=== PATIENT | female | born 1950 | race Caucasian/White ===

== ENCOUNTER → 2022-08-17 09:30 | Outpatient (CLI) | payer MEDICARE, SELFPAY ==
--- NOTE | 2022-08-17 09:37 | XR_ITS ---
FINAL REPORT CLINICAL HISTORY: hip pain. no pain FINDINGS: LEFT HIP 2 views of the left hip an AP view of the pelvis were obtained. There is no acute fracture or dislocation. There are moderate to severe degenerative changes of the left hip with mild degenerative changes of the right hip. Degenerative changes are also seen in the lower lumbar spine. There are mild vascular calcifications. There is no acute soft tissue abnormality. IMPRESSION: No acute bony abnormality. Moderate to severe degenerative changes of the left hip. Reviewed, Interpreted and Dictated by Abad Chairez III, MD Transcribed by Jennifer Milligan Authenticated and [facility]
[2022-08-17 12:41] LABS: Alanine Aminotransferase 20 U/L (12-78); Albumin/Globulin Ratio 1.5 (1.1-1.8); Alkaline Phosphatase 79 U/L (38-126); Anion Gap 13.7 mEq/L (5-15); Aspartate Amino Transferase 33 U/L (14-36); Bilirubin,Total 0.6 mg/dl (0.2-1.3); Blood Urea Nitrogen 19 mg/dl (7-17); Calcium 9.6 mg/dl (8.4-10.2); Carbon Dioxide 29 mmol/L (22.0-30.0); Chloride 102 mmol/L (98-107); Chol/HDL Ratio 4.6 (1-3.5); Cholesterol 246 mg/dl (140-200); Estimated Glomerular Filt Rate 98 ml/min (>60); GFR (African American) 119 ML/MIN (>60); Globulin 2.7 g/dL (1.3-3.2); Glucose 83 mg/dl (74-100); HDL Cholesterol 54 mg/dl (40-60); Potassium 4.7 mmoL/L (3.5-5.1); Sodium 140 mmol/L (136-145); Total Protein,Serum 6.7 g/dl (6.3-8.2); Triglycerides 133 mg/dl (30-150); VLDL Cholesterol 27 mg/dL (0-40)
[2022-08-17 12:49] LABS: Basophils % 0.6 % (0.1-2.0); Eosinophils # 0.2 K/mm3 (0.0-0.4); Eosinophils % 2.8 % (0.1-12.0); Hematocrit 44.3 % (37.0-47.0); Hemoglobin 14.6 g/dL (12.2-16.2); Lymphocytes # 1.6 K/mm3 (0.7-4.5); Lymphocytes % 30.7 % (10-50); Mean Corpuscular HGB Conc 32.9 g/dL (31.8-35.4); Mean Corpuscular Hemoglobin 29.1 pg (27.0-31.2); Mean Corpuscular Volume 88.6 fl (81-99); Mean Platelet Volume 9.4 fl (7.4-10.4); Monocytes # 0.3 K/mm3 (0.1-1.0); Monocytes % 6.5 % (1.7-9.3); Neutrophils # 3.1 K/mm3 (1.8-7.8); Neutrophils % 59.4 % (37.0-80.0); Platelet Count 330 K/mm3 (142-424); Red Cell Distribution Width 13.2 % (11.5-17.5); White Blood Count 5.3 K/mm3 (4.8-10.8)
[2022-08-17 12:52] LABS: Direct LDL Cholesterol 164.63 mg/dL (100-129)
[2022-08-17 12:57] LABS: Free T4 (Free Thyroxine) 1.09 ng/dl (0.78-2.19)
[2022-08-17 12:58] LABS: 25-OH Vitamin D, Total 34.9 ng/mL (30-100)
[2022-08-17 13:12] LABS: Thyroid Stimulating Hormone 3.45 uIU/mL (0.465-4.68)
== END ==
LOC: RAD 09:31 → LAB 15:16
PROVIDERS: PCP Emergency Medicine; Visit Provider Emergency Medicine
DX: E78.5 Hyperlipidemia, unspecified; R53.83 Other fatigue; E55.9 Vitamin D deficiency, unspecified; M25.552 Pain in left hip
CPT/HCPCS: 73502; 80053; 80061; 82306; 84439; 84443; 85025

== ENCOUNTER 2022-12-18 08:44 | Emergency (ER) | payer MEDICARE, SELFPAY ==
[2022-12-18 08:55] VITALS: BP 147/83; PULSE 67; RESP 22; TEMP 36.3; O2SAT 97; BMI 24.0
--- NOTE | 2022-12-18 09:03 | EXP.UTC ---
Discharge Plan Disposition Patient Disposition: Home, Self-Care Condition: Good Prescriptions Prescriptions: New cefdinir 300 mg capsule 300 mg PO BID Qty: 20 0RF phenazopyridine [Pyridium] 200 mg tablet 200 mg PO Q8H 2 Days Qty: 6 0RF Referrals Follow up/Referrals: Jose Jenkins MD [Primary Care Provider] - See instructions Activity Restrictions/Add. Instructions Additional Instructions/Restrictions: *Increase fluids. Water not Soda or Tea *Start antibiotic immediately and be sure to take as ordered for the FULL length of time although you should start to see improvement over the next 48 hours *Pyridium as needed Remember this medication will turn your urine . This is normal but it will stain what ever it gets on *You should not use Pyridium for more than 48 hours. If so , follow up with your primary physician to review urine culture and ensure that antibiotic is adequate for infection *Be SURE to follow up anytime for new or worsening symptoms with your family doctor. AND in 48 hours for urine culture results with your family doctor, if you do not have a doctor then you may call back to the [facility] for urine culture results and further treatment. We do recommend that you choose and establish care with a Primary Care Physician. ?AND follow up with them ?in 10-14 days to repeat UA to ensure infection is resolved and blood no longer present *Be sure to let your PCP know that we sent urine cultures from the [facility] so they can follow up to ensure that you area the on the correct antibiotic Call your doctor office and make appointment for 48 hours (2 days from today) ?to follow up and get the results of your urine culture and further treatment Clinical Impressions Clinical Impression: UTI (urinary tract infection) Qualifiers: Urinary tract infection type: site unspecified Hematuria presence: with hematuria Qualified Code(s): N39.0 - Urinary tract infection, site not specified Instructions Patient Instructions: Urinary Tract Infection, DI for Urinary Tract Infection (UTI) Discharge ED Provider: Wendy Johnson [facility] [place] HPI General Stated complaint: possible UTI Mode of Arrival: Ambulatory Source of Information: Patient Limitations: No Limitations Time Seen by Provider: 12/18/22 09:03 Description of Symptoms (Recalled from Triage Doc. by RN): PATIENT C/O BURNING, FREQUENCY AND URGENCY WITH URINATION THAT STARTED OVER THE WEEKEND HEENT Symptoms (Recalled from RN notes): No Resp Symptoms (Recalled from RN notes): No Skin Symptoms (Recalled from RN notes): No MS Symptoms (Recalled from RN notes): No Functional Status (Recalled from RN notes): WNL History of Present Illness Provider Complaint: Patient states that over the weekend she started with burning with urination and urgency and frequency States that she feels like she may have a UTI so she came in today to get checked when she was still having symptoms Related Data Previous Rx's Medication Instructions Recorded cefdinir 300 mg capsule 300 mg PO BID #20 caps 12/18/22 phenazopyridine 200 mg tablet 200 mg PO Q8H pain 2 days #6 tabs 12/18/22 (Pyridium) Allergies Allergy/AdvReac Type Severity Reaction Status Date / Time No Known Allergies Allergy Verified 12/13/22 14:30 Worker's Comp Is this a Worker's Comp case?: [facility] Disclaimer: The information contained in this section may have been updated after the patient was seen, as this information can be updated by other users. Surgical History History of bladder suspension procedure History of knee surgery Family History Other Cancer Heart attack Hyperlipidemia Stroke Social History Smoking Status: Never smoker alcohol intake: never substance use type: denies use current occupational status: previously employed Travel in the [facility] [employer]
[2022-12-18 09:04] VITALS: BP 147/83; PULSE 67; RESP 22; TEMP 36.3; O2SAT 97
[2022-12-18 09:23] LABS: Microscopic, Urine URINE MICROSCOPIC (MICROSCOPIC)
[2022-12-18 09:58] LABS: Appearance,Urine SL CLOUDY (Clear); Bilirubin,Urine Negative (Negative); Blood, Urine 2+ (Negative); Color,Urine YELLOW (Yellow); Glucose,Urine (UA) Negative (Negative); Ketones,Urine Negative (Negative); Leukocyte Esterase,Urine 3+ (Negative); Nitrate,Urine Negative (Negative); Protein,Urine Negative (Negative); Specific Gravity, Urine <= 1.005 (1.005-1.030); Urobilinogen,Urine 0.2 EU/dl (0.2)
[2022-12-18 10:11] LABS: WBC,Urine 20-50 #/hpf (0-3)
[2022-12-18 10:12] LABS: Bacteria,Urine 1+ /lpf; Squamous Epithelial Cell,Urine Occasional #/hpf (0-5)
== END 2022-12-18 10:16 | disposition home or self-care (01) ==
PROVIDERS: Emergency Provider Nurse Practitioner; PCP Emergency Medicine
DX: N39.0 Urinary tract infection, site not specified (principal); B96.5 Pseudomonas (aeruginosa) (mallei) (pseudomallei) as the cause of diseases classified elsewhere; R31.9 Hematuria, unspecified
CPT/HCPCS: 81001; 87086; 87186; 99204; 99212; G0463

== ENCOUNTER → 2023-01-08 13:17 | Outpatient (CLI) | payer MEDICARE, SELFPAY | PROVIDERS: PCP Emergency Medicine; Visit Provider Emergency Medicine | DX: N39.0 Urinary tract infection, site not specified (principal) | CPT/HCPCS: 87086 ==

== ENCOUNTER → 2023-01-08 13:26 | Outpatient (CLI) | payer MEDICARE, SELFPAY ==
--- NOTE | 2023-01-08 13:27 | US_ITS ---
PROCEDURE: US TRANSVAGINAL CLINICAL INDICATION: post menopausal bleeding COMPARISON: No exams were available for comparison FINDINGS: Transabdominal sonographic images of the pelvis were obtained. UTERUS: 5.4 cm x 4.3 cmx 3.3 cm with a combined endometrial thickness of 4.1mm. Degenerative uterus with multiple calcifications within the myometrium. LEFT OVARY: Not visualized RIGHT OVARY: Not visualized Both ovaries are not seen. There is no fluid in the cul-de-sac. IMPRESSION: 1. Anteverted small degenerative uterus. 2. There are multiple calcifications within the myometrium. 3. Subjectively the endometrium appears thin. 4. Ovaries are not visualized and there is no fluid in the cul-de-sac. Dictated by: Arnulfo Fritz MD 01/08/2023 15:42 Arnulfo Fritz MD in OV 01/08/2023 15:42
== END ==
LOC: RAD 13:27
PROVIDERS: PCP Emergency Medicine; Visit Provider Physician Assistant
DX: N95.0 Postmenopausal bleeding (principal); B96.5 Pseudomonas (aeruginosa) (mallei) (pseudomallei) as the cause of diseases classified elsewhere; R82.90 Unspecified abnormal findings in urine
CPT/HCPCS: 76830; 87086

== ENCOUNTER 2023-06-03 09:42 | Emergency (ER) | payer MEDICARE, SELFPAY ==
[2023-06-03] VITALS (12 sets, daily range): BP systolic 109–134; BP diastolic 67–82; PULSE 71–107; RESP 15; TEMP 36.7–36.9; O2SAT 94–99; BMI 22.7
[2023-06-03 09:51] LABS: Microscopic, Urine URINE MICROSCOPIC (MICROSCOPIC)
--- NOTE | 2023-06-03 09:56 | CT_ITS ---
FINAL REPORT CLINICAL HISTORY: previous diverticulitis/ low abd pain b/l c/o lower abdominal pain ongoing for 1 week. pt reports she has mucus discharge from rectum. pt reports pain feels like pressure. pt reports history of diverticulitis. COMPARISON: None FINDINGS: CT OF THE ABDOMEN AND PELVIS WITH CONTRAST Axial CT images of the abdomen and pelvis were obtained after the administration of IV contrast. Coronal and sagittal reformatted images were also obtained and reviewed. This study was performed with techniques to keep radiation doses as low as reasonably achievable (ALARA). Individualized dose reduction techniques using automated exposure control or adjustment of mA and/or kV according to the patient's size were employed. Abdomen: Mild bibasilar atelectasis is present.. The heart is normal in size. There are several small presumed hepatic cysts present. The spleen is unremarkable. No adrenal mass is present. The pancreas has an unremarkable appearance. There are several left renal cysts present, the largest of which measures 13 mm in the anterior left kidney. The aorta is normal in caliber. There is no free fluid or adenopathy. No mass or abnormal fluid collection is seen. Pelvis: The appendix is not well-visualized. The urinary bladder is unremarkable. There are multiple diverticula present in the descending and sigmoid portions of the colon. There is wall thickening of the distal sigmoid colon and rectum with surrounding fat stranding, would favor colitis rather than diverticulitis. Postoperative changes of left hip arthroplasty are noted. There is a probable small right ovarian cyst present measuring 14 mm. There is no evidence of bowel obstruction. IMPRESSION: Distal sigmoid and rectum wall thickening, with surrounding fat stranding, favor colitis rather than diverticulitis. Reviewed, Interpreted and Dictated by Abad Chairez III, MD Transcribed by Whitney Avalos Authenticated and . [facility]
--- NOTE | 2023-06-03 09:58 | ED_ITS ---
Discharge Plan Disposition Patient Disposition: Home, Self-Care Prescriptions Prescriptions: New amoxicillin-pot clavulanate 875-125 mg tablet 1 tab PO BID Qty: 20 0RF No Action Centrum Minis Women 50 Plus 4 mg iron-200 mcg-25 mcg tablet PO levofloxacin 500 mg tablet 500 mg PO DAILY 7 Days Qty: 7 0RF Referrals Follow up/Referrals: Garrison Dee DO [Primary Care Provider] - See instructions Modesto Holloway DO [Staff Physician] - See instructions Activity Restrictions/Add. Instructions Additional Instructions/Restrictions: At this time it was felt you are safe to be discharged home. If new or worsening symptoms please do not hesitate to return the emergency department. Please call and schedule an appointment with Dr. Holloway in the next 1 to 2 weeks as discussed. Please take your antibiotics as prescribed Clinical Impressions Clinical Impression: Colitis Discharge ED Provider: Bernardo Hinojosa General Adult HPI General Chief complaint: Abdominal Pain Stated complaint: Abd Pain, body aches Time Seen by Provider: 06/03/23 09:44 Mode of Arrival: Ambulatory Source of Information: Patient Limitations: No Limitations Description of Symptoms (Recalled from ER Triage Doc. by RN): pt presents to ED with c/o lower abdominal pain ongoing for 1 week. pt reports she has mucus discharge from rectum. pt reports pain feels like pressure. pt reports history of diverticulitis. History of Present Illness HPI narrative: Patient is a 72-year-old female with past medical history of previous diverticulitis who presents emergency department for evaluation of abdominal pain. She has had low bilateral abdominal pain in a bandlike distribution across her abdomen that is not particularly modifiable however does wax and wane from moderate to severe in intensity. No vaginal bleeding. No dysuria. No bloody stools. Last bowel movement this morning. No vomiting. No chest pain. Due to persistent symptoms she presents here for continued evaluation. Related Data Home Medications Medication Instructions Recorded Confirmed [id number] 4 mg-folic acid tab PO 01/15/23 01/15/23 200 mcg-vit K 25 mcg-lutein tablet (Centrum Minis Women 50 Plus) Previous Rx's Medication Instructions Recorded levofloxacin 500 mg tablet 500 mg PO DAILY 7 days #7 tabs 01/14/23 amoxicillin 875 mg-potassium 1 tab PO BID colitis #20 tabs 06/03/23 clavulanate 125 mg tablet Allergies Allergy/AdvReac Type Severity Reaction Status Date / Time No Known Allergies Allergy Verified 01/15/23 10:43 [facility] Disclaimer: The information contained in this section may have been updated after the patient was seen, as this information can be updated by other users. Surgical History History of bladder suspension procedure History of knee surgery Family History (Updated 01/15/23 @ 10:49 by DELL Vallejo) Sister Cancer, Onset Age: 50 Father Hyperlipidemia Stroke Heart disease Social History Smoking Status: Never smoker alcohol intake: never substance use type: denies use current occupational status: previously employed Travel in the last 8 weeks: Outside the [place] [facility] marital status: single number of children: 8 ROS Obtained: Yes Systems reviewed as appropriate & no additional complaints except as documented Physical Exam General General appearance: alert and in no apparent distress Head Head exam: atraumatic and normocephalic Eye Eye exam: Present PERRL ENT ENT exam: Present mucous membranes moist Neck Neck exam: Present normal inspection Chest Chest inspection: Present normal inspection and symmetric chest wall rise Respiratory Respiratory exam: Present normal lung sounds bilaterally; Absent respiratory distress Cardiovascular Cardiovascular exam: Present normal rhythm and tachycardia Abdominal Exam Abdominal exam: Present soft; Absent tenderness Extremities Exam Extremities exam: Present normal inspection Neurological Exam Neurological exam: Present alert Psychiatric Psychiatric exam: Present normal affect Skin Skin exam: Present warm and dry Medical Decision Making Ron Inquiry Pt receiving controlled substance: No Vital Signs: 06/03/23 09:43 06/03/23 09:50 06/03/23 10:01 Temperature 98.5 F Temperature Source Oral Pulse Rate 107 H 102 H Pulse Rate [Left Radial] 107 H Respiratory Rate 15 Blood Pressure 129/82 134/80 Blood Pressure [Right Arm] 129/82 Blood Pressure Mean 97 Blood Pressure Mean [Right Arm] 97 02 Sat by Pulse Oximetry 97 99 97 Oxygen Delivery Method Room Air Room Air 06/03/23 10:15 06/03/23 10:45 06/03/23 11:01 Temperature Temperature Source Pulse Rate 87 83 83 Pulse Rate [Left Radial] Respiratory Rate Blood Pressure 118/78 110/82 110/68 Blood Pressure [Right Arm] Blood Pressure Mean Blood Pressure Mean [Right Arm] 02 Sat by Pulse Oximetry 95 96 97 Oxygen Delivery Method Room Air Room Air Room Air 06/03/23 11:16 06/03/23 11:30 06/03/23 11:46 Temperature Temperature Source Pulse Rate 81 74 78 Pulse Rate [Left Radial] Respiratory Rate Blood Pressure 115/71 110/67 111/69 Blood Pressure [Right Arm] Blood Pressure Mean Blood Pressure Mean [Right Arm] 02 Sat by Pulse Oximetry 96 97 94 L Oxygen Delivery Method Room Air Room Air Room Air 06/03/23 12:01 06/03/23 12:30 Temperature Temperature Source Pulse Rate 77 71 Pulse Rate [Left Radial] Respiratory Rate Blood Pressure 109/74 L 128/78 Blood Pressure [Right Arm] Blood Pressure Mean Blood Pressure Mean [Right Arm] 02 Sat by Pulse Oximetry 96 98 Oxygen Delivery Method Room Air Room Air Lab Data Lab Results 06/03/23 09:49: Urine Color Yellow, Urine Appearance Clear, Urine pH 6.5, Ur Specific [place] 1.020, Urine Protein Trace, Urine Glucose (UA) Negative, Urine Ketones Negative, Urine Blood 1+, Urine Nitrate Negative, Urine Bilirubin Negative, Urine Urobilinogen 1.0, Ur Leukocyte Esterase Negative, Urine RBC 3-5, Urine WBC Occasional, Ur Squamous Epith Cells 3-5, Urine Bacteria Trace, Urine Mucus 1+ 06/03/23 09:55: WBC 10.8, RBC 4.49, Hgb 13.4, Hct 40.6, MCV 90.4, MCH 29.7, MCHC 32.9, RDW 13.2, Plt Count 469 H, MPV 8.1, Neut % (Auto) 81.3 H, Lymph % (Auto) 12.2, [place] % (Auto) 5.1, Eos % (Auto) 0.6, Baso % (Auto) 0.7, Neut # (Auto) 8.8 H, Lymph # (Auto) 1.3, [place] # (Auto) 0.6, Eos # (Auto) 0.1, Baso # (Auto) 0.1, Sodium 138, Potassium 3.9, Chloride 105, Carbon Dioxide 31 H, Anion Gap 5.9, BUN 14, Creatinine 0.70, Estimated Creat Clear 52, Estimated GFR 82, Est GFR ( Amer) 99, Glucose 100, Calcium 9.3, Total Bilirubin 0.7, AST 32, ALT 34, Alkaline Phosphatase 139 H, Total Protein 7.3, Albumin 3.8, Globulin 3.5 H, Albumin/Globulin Ratio 1.1, Lipase 49 06/03/23 09:59: SARS-CoV-2 (PCR) Not detected, Influenza A Untype (PCR) Not detected, Influenza Type B (PCR) Not detected 06/03/23 09:55 06/03/23 09:55 Orders (Tests/Meds): ED MEDICATIONS Generic Name Dose Route Start Last Admin Trade Name Freq PRN Reason Stop Dose Admin Sodium Chloride 10 ml 06/03/23 10:29 Sodium Chloride 0.9% 10ml Syr (Rad Only) IV 07/03/23 10:28 NEEDED PRN Maintain IV Site Discontinued Medications Generic Name Dose Route Start Last Admin Trade Name Freq PRN Reason Stop Dose Admin Acetaminophen 1,000 mg 06/03/23 09:56 06/03/23 10:03 Acetaminophen 1,000mg/100ml Vial IV 06/03/23 09:57 1,000 mg ONCE ONE Administration Lactated Ringer's 1,000 mls @ 999 mls/hr 06/03/23 09:56 06/03/23 10:04 Lactated Ringer's 1000 Ml Bag IV 06/03/23 10:56 999 mls/hr .Q1H1M ONE Administration Iopamidol 75 ml 06/03/23 10:29 06/03/23 10:29 Iopamidol-370 (76%);100ml Bottle IV 06/03/23 10:30 75 ml ONCE ONE Administration Ketorolac Tromethamine 30 mg 06/03/23 09:56 06/03/23 10:03 Ketorolac 30mg/Ml Vial IV 06/03/23 09:57 30 mg ONCE ONE Administration Morphine Sulfate 4 mg 06/03/23 09:56 06/03/23 10:25 Morphine 4mg/Ml Syringe IV 06/03/23 09:57 Not Given ONCE ONE Ondansetron HCl 4 mg 06/03/23 09:56 06/03/23 10:03 Ondansetron 4mg/2ml Vial IV 06/03/23 09:57 4 mg ONCE ONE Administration ORDERS Category Date Time Status CT abdomen pelvis w con Stat Cat Scan 06/03/23 09:56 Completed CBC w/Auto Diff [Complete Blood Count Auto Diff] Stat Lab 06/03/23 09:55 Completed CMP [Comprehensive Metabolic Panel] Stat Lab 06/03/23 09:55 Completed Lipase Stat Lab 06/03/23 09:55 Completed Rapid PCR Covid and Flu A/B Stat Lab 06/03/23 09:59 Completed UA [Urinalysis and Microscopic] Stat Lab 06/03/23 09:49 Completed Medical Decision Narrative: In summary patient is a 72-year-old female with past medical history described above who presents emergency department for evaluation of abdominal pain in setting of previous diverticulitis. Patient is hemodynamically stable and nontoxic-appearing upon arrival, afebrile, slight tachycardia. Differential diagnosis includes diverticulitis, appendicitis, urinary tract infection, mesenteric adenitis, among others. Workup will be conducted with hematologic labs, urinalysis, CT abdomen pelvis with IV contrast. Initial inventions include crystalloid bolus, Tylenol, Toradol, morphine, Zofran. Workup reviewed by me, hematologic labs are nonactionable, no critical electrolyte abnormalities or ROYAL. Urinalysis interpreted by me and not consistent with infection. Viral swab negative. CT imaging has diverticula present with adjacent colitis, no definitive diverticulitis. Upon repeat evaluation patient continued to be well- appearing. Given this patient be treated empirically with Augmentin twice a day for 10 days will be referred to Dr. Holloway for continued evaluation on an outpatient basis. Critical Care Critical Care Time Critical Care Time: No
[2023-06-03 10:03] LABS: Coronavirus 19, PCR Not Detected (NotDetected); Influenza A, PCR Not Detected (NotDetected); Influenza B, PCR Not Detected (NotDetected)
[2023-06-03] MEDS: ONDANSETRON 4MG/2ML VIAL 4 MG IV (10:03)
[2023-06-03] MEDS: KETOROLAC 30MG/ML VIAL 30 MG IV (10:03)
[2023-06-03] MEDS: ACETAMINOPHEN 1,000MG/100ML VIAL 1000 MG IV (10:03)
[2023-06-03] MEDS: LACTATED RINGERS 1000ML 1,000 ML 999 ML IV (10:04)
[2023-06-03 10:09] LABS: Basophils # 0.1 K/mm3 (0-0.2); Basophils % 0.7 % (0.1-2.0); Eosinophils # 0.1 K/mm3 (0.0-0.4); Eosinophils % 0.6 % (0.1-12.0); Hematocrit 40.6 % (37.0-47.0); Hemoglobin 13.4 g/dL (12.2-16.2); Lymphocytes # 1.3 K/mm3 (0.7-4.5); Lymphocytes % 12.2 % (10-50); Mean Corpuscular HGB Conc 32.9 g/dL (31.8-35.4); Mean Corpuscular Hemoglobin 29.7 pg (27.0-31.2); Mean Corpuscular Volume 90.4 fl (81-99); Mean Platelet Volume 8.1 fl (7.4-10.4); Monocytes # 0.6 K/mm3 (0.1-1.0); Monocytes % 5.1 % (1.7-9.3); Neutrophils # 8.8 K/mm3 (1.8-7.8); Neutrophils % 81.3 % (37.0-80.0); Platelet Count 469 K/mm3 (142-424); Red Blood Count 4.49 M/mm3 (4.20-5.40); Red Cell Distribution Width 13.2 % (11.5-17.5); White Blood Count 10.8 K/mm3 (4.8-10.8)
[2023-06-03 10:17] LABS: Chloride 105 mmol/L (98-107); Potassium 3.9 mmoL/L (3.5-5.1); Sodium 138 mmol/L (136-145)
[2023-06-03 10:19] LABS: Blood Urea Nitrogen 14 mg/dl (7-17); Creatinine Clearance Estimated 52 mL/min (50-200); Estimated Glomerular Filt Rate 82 ml/min (>60); GFR (African American) 99 ML/MIN (>60)
[2023-06-03 10:20] LABS: Alanine Aminotransferase 34 U/L (12-78); Albumin Level 3.8 g/dl (3.5-5.0); Albumin/Globulin Ratio 1.1 (1.1-1.8); Alkaline Phosphatase 139 U/L (38-126); Anion Gap 5.9 mEq/L (5-15); Aspartate Amino Transferase 32 U/L (14-36); Bilirubin,Total 0.7 mg/dl (0.2-1.3); Calcium 9.3 mg/dl (8.4-10.2); Carbon Dioxide 31 mmol/L (22.0-30.0); Globulin 3.5 g/dL (1.3-3.2); Glucose 100 mg/dl (74-100); Lipase 49 U/L (23-300); Total Protein,Serum 7.3 g/dl (6.3-8.2)
[2023-06-03 10:20] LABS: Appearance,Urine CLEAR (Clear); Bilirubin,Urine Negative (Negative); Blood, Urine 1+ (Negative); Color,Urine YELLOW (Yellow); Glucose,Urine (UA) Negative (Negative); Ketones,Urine Negative (Negative); Leukocyte Esterase,Urine Negative (Negative); Nitrate,Urine Negative (Negative); PH,Urine 6.5 (5.0-8.5); Protein,Urine TRACE (Negative)
[2023-06-03] MEDS: IOPAMIDOL-370 (76%);100ML BOTTLE 75 ML IV (10:29)
[2023-06-03 10:51] LABS: WBC,Urine Occasional #/hpf (0-3)
[2023-06-03 10:52] LABS: Bacteria,Urine Trace /lpf
[2023-06-03 10:53] LABS: Mucus,Urine 1+ /lpf
--- NOTE | 2023-06-03 11:19 | PC.NURSE ---
K.BROWN ROUNDED ON PT
--- NOTE | 2023-06-03 11:20 | PC.NURSE ---
Rounded on pt. No needs or complaints voiced at this time. Call light within reach.
--- NOTE | 2023-06-03 11:49 | PC.NURSE ---
PT updated that we are waiting on ct results. No needs voiced. Call light within reach.
--- NOTE | 2023-06-03 12:56 | PC.NURSE ---
Dr. Hinojosa at BS to update pt on results
== END 2023-06-03 13:06 | disposition home or self-care (01) ==
PROVIDERS: Emergency Provider Emergency Medicine; PCP Internal Medicine
DX: R10.31 Right lower quadrant pain (principal); R10.32 Left lower quadrant pain; K52.9 Noninfective gastroenteritis and colitis, unspecified; R00.0 Tachycardia, unspecified
CPT/HCPCS: 74177; 80053; 81001; 83690; 85025; 87636; 96361; 96374; 96375; 99285; J0131; J2405; Q9967

== ENCOUNTER 2023-06-11 06:17 | Day surgery (SDC) | payer MEDICARE, SELFPAY ==
[2023-06-07 09:31] VITALS: BMI 23.5
[2023-06-11] MEDS: LACTATED RINGERS 1000ML 1,000 ML 100 ML IV (06:37)
[2023-06-11 06:40] VITALS: BP 152/78; PULSE 100; RESP 18; TEMP 36.6; O2SAT 99
--- NOTE | 2023-06-11 07:07 | P.PNANES_ITS ---
[facility] Disclaimer: The information contained in this section may have been updated after the patient was seen, as this information can be updated by other users. Medical History Urinary tract infection History of diverticulitis Colon cancer screening Breast cancer screening by mammogram Post-menopausal bleeding Arthritis of left hip Surgical History History of left hip replacement History of bladder suspension procedure History of knee surgery Family History Sister Cancer, Onset Age: 50 Father Heart disease Hyperlipidemia Stroke Other Breast cancer Social History Smoking Status: Never smoker alcohol intake: never substance use type: denies use current occupational status: employed and retired Travel in the last 8 weeks: None marital status: single number of children: 8 [facility] Anesthesia Checklist Patient Identification Patient Identification: Arm Band Structural Data Admitted From: Home Planned Operative Procedure/s: colonoscopy Consent for Planned Operative Procedure(s) Verified: Yes Verified Documents: Surgical Consent and History and Physical NPO Status Verified Time NPO: 00:00 Additional verifications Anesthesia Reactions: No Airway Assessment Mallampati Score:: Class II C-Spine Mobility Assessed: Yes TMJ Mobility Assessed: Yes Dentition: Good Dentition Neurological Assessment Level of Consciousness: Awake and Alert Anesthesia Plan Anesthesia Risk discussed: Yes Anesthesia Plan: Verified ASA Class: II Anesthesia Type: MAC
--- NOTE | 2023-06-11 07:16 | HMH.SCOPE ---
Procedure: Date: 06/11/23 Patient Date of :: 1950 Procedure Performed:: Limited flexible sigmoidoscopy with biopsy Indications:: Screening Recent abdominal pain Possible colitis Note: The patient reports recent vague/intermittent abdominal pain and has undergone a CT scan that reveals changes consistent with questionable colitis. Performing Provider:: Naveen Martinez MD Referring Provider:: Dr. Mcmahon Sedation:: Monitored anesthesia care Procedure:: After informed consent was obtained the patient was taken to the endoscopy suite. Sedation ensued after the patient was transferred to the left lateral decubitus position. Pulse, blood pressure, and oxygen saturation were monitored throughout the procedure. Digital rectal exam revealed no significant abnormality. The colonoscope was placed in position. Patchy inflammatory changes were noted starting around 10 cm. Fairly profound spasticity, lack of relaxation and tortuosity noted. After multiple attempts at maneuvering the colonoscope beyond the distal sigmoid, the decision was made to forego additional attempts to minimize risks (particularly given visual inflammatory changes). The colonoscope was carefully removed and the patient was transferred to recovery in stable condition. Please see findings and specimens below for detail. Findings:: Patchy inflammatory changes/colitis beginning at 10 cm Hemorrhoidal cushions/tags Profound tortuosity Severe spasticity/lack of relaxation Specimens:: Biopsy of inflammatory changes at 15 cm Recommendations:: Follow-up pathology Consider barium enema Consider evaluation by the gastroenterology service for short-term repeat colonoscopy Complications:: No immediate with the exception of incomplete colonoscopy secondary to above findings. Estimated blood obtained (mL): 1 Colonoscopy Component Colonoscopy Component Was a colonoscopy performed during today's procedure?: Yes Recommended follow up colonoscopy of at least 10 years?: No If no, follow up colonoscopy recommended in ___ years?: (See above) Reason for not recommending >/= 10 yr follow-up interval?: (See above)
[2023-06-11 07:25] VITALS: O2SAT 97
[2023-06-11 07:52] VITALS: BP 103/52; PULSE 76; RESP 14; TEMP 36.1; O2SAT 100
[2023-06-11 08:02] VITALS: BP 104/59; PULSE 77; RESP 16; O2SAT 99
[2023-06-11 08:12] VITALS: BP 102/61; PULSE 69; RESP 16; O2SAT 97
[2023-06-11 08:22] VITALS: BP 129/74; PULSE 66; RESP 16; O2SAT 99
== END 2023-06-11 08:23 | disposition home or self-care (01) ==
PROVIDERS: PCP Family Medicine; Visit Provider Surgery
PROC: 0DJD8ZZ Inspection of Lower Intestinal Tract, Via Natural or Artificial Opening Endoscopic (ICD-10-PCS; CPT 45330; principal; 2023-06-11 07:30)
DX: R10.9 Unspecified abdominal pain (principal); K64.8 Other hemorrhoids; K56.2 Volvulus; K52.9 Noninfective gastroenteritis and colitis, unspecified
CPT/HCPCS: 45378; 88305

== ENCOUNTER 2023-10-02 07:50 | Outpatient (CLI) | payer MEDICARE, SELFPAY ==
--- NOTE | 2023-10-02 07:57 | US_ITS ---
FINAL REPORT CLINICAL HISTORY: Right lower quadrant pain x 1 month COMPARISON: None FINDINGS: Sonographic images of the abdomen were obtained. There is a 9 mm small cyst in the left hepatic lobe. The liver otherwise has an unremarkable appearance with normal echogenicity. The gallbladder has an unremarkable appearance without evidence of gallstones. There is a probable small polyp within the gallbladder. There is no evidence of biliary ductal dilatation. The common hepatic duct measures 2 mm, which is within normal limits. Limited images of the pancreas are unremarkable. The spleen size is normal. The right kidney measures 9.8 in length. The left kidney measures 10.1 in length. There is 1.4 cm probable cyst present in the left kidney. There is otherwise normal renal echogenicity. There is no evidence of hydronephrosis. The aorta has an unremarkable appearance. Limited images of the inferior vena cava are unremarkable. Limited examination of the right lower quadrant fails to reveal any evidence of mass or fluid collection. IMPRESSION: Probable small polyp in the gallbladder without evidence of biliary ductal dilatation. No gallstones are visualized. Limited examination of the right lower quadrant fails to reveal any evidence of mass or fluid collection. Reviewed, Interpreted and Dictated by Abad Chairez III, MD Transcribed by Whitney Avalos Authenticated and [facility]
== END 2023-10-02 23:59 | disposition home or self-care (01) ==
LOC: RAD 07:52
PROVIDERS: Visit Provider Nurse Practitioner Family
DX: R10.31 Right lower quadrant pain (principal)
CPT/HCPCS: 76700

== ENCOUNTER 2023-10-07 11:01 | Outpatient (CLI) | payer MEDICARE, SELFPAY | END 2023-10-07 23:59 | disposition home or self-care (01) | LOC: LAB.DROPOF 10-08 11:01 | PROVIDERS: PCP Nurse Practitioner Family; Visit Provider Nurse Practitioner Family | DX: R30.0 Dysuria (principal); N39.0 Urinary tract infection, site not specified; B95.2 Enterococcus as the cause of diseases classified elsewhere | CPT/HCPCS: 87086; 87088; 87186 ==

== ENCOUNTER 2025-01-06 10:16 | Outpatient (CLI) | payer BC, MEDICARE, SELFPAY ==
--- OUTSIDE RECORDS SUMMARY | 2025-01-07 14:14 | XMS_ITS | Encounter Summary ---
Author Organization Healthcare Address [address] [id number] Care Team Providers Care Hand Cloth Examiner Name Role Phone Jose Jenkins MD Primary Care Provider + [phone] Reason for Visit * Reason Comments Med Refill Encounter Details Date Type Department Care Team ([facility] Contact Info) Description 04/04/2023 Refill Medical Office Building [facility] [address] [facility], [address] [place] [address] Peace Duke, REED MAN [address] [place] [address] Social History Tobacco Use Types Packs/Day Years Used Date Smoking Tobacco: Never Smokeless Tobacco: Never Alcohol Use Standard Drinks/Week Comments Never 0 (1 standard drink = 0.6 oz pur e alcohol) Comments No Sex and Gender Information Value Date Recorded Sex Assigned at Not on file Legal Sex Female 8:31 AM EDT Gender Identity Not on file Sexual Orientation Not on file documented as of this encounter Functional Status * Calculated C-SSRS Risk Score (Lifetime/Recent) Answer Date of Assessment Author No Risk Indicated 04/04/2023 1:45 PM Sherlyn Jensen RN * Question Answer Date of Assessment Author 1. Wish to be (Past 1 Month) No 024 1:45 PM Sherlyn Jensen RN 2. Non-Specific Active Suici kwan Thoughts (Past 1 Month) No 04/04/2023 1:45 PM Onelia Jensen RN 6. Suicidal Behavior (Lifetime) No 1:45 PM Sherlyn Jensen RN documented as of this encounter Miscellaneous Notes * Telephone Encounter - Rosenda Remy RN - 04/05/2023 11:41 AM EST Patient did not request * Telephone Encounter - Rosenda Remy RN - 04/05/2023 11:40 AM EST Pt states she did not request this documented in this encounter Plan of Treatment Not on file documented as of this encounter Visit Diagnoses Not on filedocumented in this encounter Care Teams Hand Cloth Examiner Relationship Specialty Start Date End Date Jose Jenkins MD [address] [id number] PCP - General 09/18/22 documented as of this encounter
--- OUTSIDE RECORDS SUMMARY | 2025-01-07 14:14 | XMS_ITS | Encounter Summary ---
[facility] Address [address] [place] [address] Care Team Providers Care Supervisor Welding Equipment Repairer Name Role Phone Provider, No Known Primary Care Provider Unavail able Encounter Details Date Type Department Care Team (Late st Contact Info) Description 08/18/2024 Results Follow-Up [facility] [address] [place] [address] Obdulia Keene APRN [address] [facility] [address] [place] [id number] Social History Tobacco Use Types Packs/Day Years Used Date Smoking Tobacco: Never Alcohol Use Standard Drinks/Week Comments Not Currently 0 (1 standard drink = 0.6 oz pur e alcohol) Comments No Sex and Gender Information Value Date Recorded Sex Assigned at Not on file Legal Sex Female 8:54 AM EDT Gender Identity Not on file Sexual Orientation Not on file documented as of this encounter Plan of Treatment Not on file documented as of this encounter Visit Diagnoses Not on filedocumented in this encounter Care Teams Supervisor Welding Equipment Repairer Relationship Specialty Start Date End Date Provider, [place] [address] PCP - General 12/01/18 documented as of this encounter
--- OUTSIDE RECORDS SUMMARY | 2025-01-07 14:15 | XMS_ITS | Encounter Summary ---
[facility] [address] [place] [address] Care Team Providers Care Charge Entry Specialist Name Role Phone Provider, No Known Primary Care Provider Unavail able Encounter Details Date Type Department Care Team (Late st Contact Info) Description 09/03/2024 Results Follow-Up [facility] [address] [place] [address] Obdulia Keene APRN [address] [facility] [address] [place] [id number] Social History Tobacco Use Types Packs/Day Years [...] on filedocumented in this encounter Care Teams Charge Entry Specialist Relationship Specialty Start Date End Date Provider, [place] [address] PCP - General 12/01/18 documented as of this encounter
--- OUTSIDE RECORDS SUMMARY | 2025-01-07 14:15 | XMS_ITS | Clinical Summary ---
Author Organization Healthcare Address [address] [place] [address] Care Team Providers Care Pressing Department Supervisor Name Role Phone Jose Jenkins MD Primary Care Provider + [phone] Allergies No known active allergies Medications Multiple Vitamins-Minera ls (CENTRUM SILVER PO) Take by mouth 1 (one) time each day. Active Ascorbic Acid (JESUS-C PO) Take by mouth 1 (one) time each day. Active CRANBERRY PO Take by mouth 1 (one) time each day. Active gabapentin (Neurontin) 100 MG capsule Take 1 capsule (100 mg) by mouth 3 (three) times a day. If this medication makes you drowsy you may take it only at bedtime 30 capsule 4 Active Additional Information Patient not taking.Reported on 04/19/2023 acetaminophen (Tylenol Extra Strength) 500 MG tablet Take 2 tablets (1,000 mg) by mouth every 8 (eight) hours. 100 tablet 4 Active traMADol (Ultram) 50 MG tablet Take 1 tablet (50 mg) by mouth every 4 (four) hours if needed for moderate pain. Take 1 or 2 tablets every 4-6 hours as needed for pain 60 tablet 4 Active Additional Information Patient not taking.Reported on 04/19/2023 naproxen (Naprosyn) 500 MG tablet Take 1 tablet (500 mg) by mouth 2 (two) times a day with meals. 28 tablet 1 4 Active Active Problems Problem Noted Date Diagnosed Date Primary osteoarthritis of one hip, left 11/22/19 23 Family History Medical History Relation Name Comments Anesthesia problems Neg Hx Malig Hyperthermia Neg Hx Social History Tobacco Use Types Packs/Day Years Used Date Smoking Tobacco: Never Smokeless Tobacco: Never Tobacco Cessation:Counseling Given: Not Answered Alcohol Use Standard Drinks/Week Comments Never 0 (1 standard drink = 0.6 oz pur e alcohol) Comments No Sex and Gender Information Value Date Recorded Sex Assigned at Not on file Legal Sex Female 8:31 AM EDT Gender Identity Not on file Sexual Orientation Not on file Last Filed Vital Signs Vital Sign Reading Time Taken Comments Blood Pressure 136/82 07/29/2023 7:58 AM EDT Pulse 73 07/29/2023 7:58 AM EDT Temperature 36.6 C (97.9 F) 04/04/2023 2:00 PM EST Respiratory Rate 12 04/04/2023 2:00 PM EST Oxygen Saturation 98% 07/29/2023 7:58 AM EDT Inhaled Oxygen Concentration - - Weight 65 kg (143 lb 4.8 oz) 07/29/2023 7:58 AM EDT Height 170.2 cm (5' 7 ) 05/20/2023 8:43 AM EST Body Mass Index 22.44 05/20/2023 8:43 AM EST Plan of Treatment Health Maintenance Due Date Last Done Comments [facility]-Bone Density Scan 1950 [facility]-Depression Screening 1950 [facility]-Hepatitis C Screening 1950 [facility]-Medicare Annual Wellness (AWV) 1950 [facility]-Infant/Child/Adol SDOH Screenings 1950 [facility]- SDOH Screenings 09/06/1967 [facility]-Adult SDOH Screenings 09/06/1967 [facility]-DTaP,Tdap,and Td Vaccines (1 - Tdap) 1968 CT Colonography 1994 Colonoscopy 1994 FIT-DNA 1994 FIT 1994 FOBT 1994 Sigmoidoscopy 1994 [facility]-Colorectal Cancer Screening 1994 [facility]-Zoster Vaccines (1 of 2) 09/06/1999 [facility]-Pneumococcal Vaccine: 50+ Years (2 of 2 - PCV) 01/20/2021 01/21/2020 [id number] Vaccine ( - season) 2024 12/21/2021, 06/27/2021, 01/13/2021, Additional history exists [facility]-Influenza Vaccine (#1) 11/23/202411/30, 12/30/2021, 12/20/2020, Additional history exists [facility]-RSV Vaccine: 60+ Years or Completed 02/13/2023 HPV Vaccines Aged Out No longer eligi ble based on patient's age to complete this topic [facility]-HIB Vaccines Aged Out No longer e ligible based on patient's age to complete this topic [facility]-Hepatitis A Vaccines Aged Out No longer eligible based on patient's age to complete this topic [facility]-IPV Vaccines Aged Out No longer e ligible based on patient's age to complete this topic [facility]-Rotavirus Vaccines Aged Out No lo nger eligible based on patient's age to complete this topic Medical Devices Implanted Type Area Vegetable Tier Device Identifier Shelf Expiration Date Model / Serial / Lot Chg Shell R3 3 Hole Acet 54mm - [id number] Implanted:Qty: 1 on 04/04/2023 by Noah Dickson MD at [facility] Left: Hip [employer]-[id number] 02/17/2032 [id number] / / [id number] Chg Screw Ref Spher Head 30mm - [id number] Implanted:Qty: 1 on 04/04/2023 by Noah Dickson MD at [facility] Left: Hip [employer]-[id number] 10/30/2032 [id number] / / [id number] Liner Or3o Dual Mbility 42 54 - [id number] Implanted:Qty: 1 on 04/04/2023 by Noah Dickson MD at [facility] Left: Hip [employer]-[id number] 10/27/2032 [id number] / / [id number] Liner Or3o Dual Mbility Xlpe 28 42 - [id number] Implanted:Qty: 1 on 04/04/2023 by Noha Dickson MD at [facility] Left: Hip [employer]-[id number] 10/08/2032 [id number] / / [id number] Chg Stem Anthology So Por Pl H - [id number] Implanted:Qty: 1 on 04/04/2023 by Noah Dickson MD at [facility] Left: Hip [employer]-[id number] 04/29/2031 [id number] / / [id number] Chg Head Oxinium Fem 03/07 28m - [id number] Implanted:Qty: 1 on 04/04/2023 by Noah Dickson MD at [facility] Left: Hip [employer]-[id number] 11/24/2032 [id number] / / [id number] [place] [address] [place] [address] MEDICARE Advance Directives * Full Code (Latest Code Status on File) Date Activated Date Inactivated Comments 04/04/2023 11:06 AM 04/04/2023 7:19 PM Question Answer Comments Patient has decision-making capacity? Yes Care Teams Pressing Department Supervisor Relationship Specialty Start Date End Date Jose Jenkins MD [address] [place] [address] PCP - General 09/18/22
--- OUTSIDE RECORDS SUMMARY | 2025-01-07 14:15 | XMS_ITS | Clinical Summary ---
Author Organization [facility] Address [address] [place] [address] Care Team Providers Care Electricians Top Helper Name Role Phone Provider, No Known Primary Care Provider Unavail able Allergies Active Allergy Reactions Criticality Noted Date Comments Metronidazole Diarrhea 08/14/2024 Medications multivitamin with minerals (MULTIVITAMIN ADULT PO) Take 1 tablet by mouth Daily. Active CRANBERRY PO Take 1 tablet by mouth Daily. Active Cholecalciferol 25 MCG (1000 UT) tablet Take 1 tablet by mouth Daily. Active vitamin B-12 (CYANOCOBALAMIN ) 500 MCG tablet Take 1 tablet by mouth Daily. Active estradiol (ESTRACE VAGINAL) 0.1 MG/GM vaginal creamIndication s:Vaginal atrophy Insert 1 gram per vagina nightly for two weeks then decrease to two times a week 42.5 g 3 09/01/2024 Active Active Problems Problem Noted Date Diagnosed Date Friable cervix 09/01/2024 Overview (09/01/2024): 09/01/24 Friable cervix visualized upon pelvic exam-pap smear performed active bleeding immediately after. PMB (postmenopausal bleeding) 08/14/2024 Overview (09/01/2024): 08/14/24 x3 times in last six months-needs follow up with vaginal ultrasound and possible EMB 09/01/24 Ultrasound today showed anteverted uterus no malformations heterogeneous myometrium with calcifications visualized around periphery, endometrial thickness 2.1mm. EMB not indicated at this time. Mixed stress and urge urinary incontinence 08/14 Overview (08/14/2024): 08/14/24 Pelvic floor therapy referral placed Vaginal atrophy 08/14/2024 Overview (08/14/2024): 08/14/24 Vaginal atrophy-denies being sexually active or dryness that is a problem. No interventions at this time. Primary osteoarthritis of one hip, left 11/22/19 Immunizations Immunization Administration Dates Next Due Arexvy (RSV, Adults 60+ yrs) 02/13/2023 FLUAD TRI 65YR+ 02/18/2024 Fluad Quad 65+ 11/30/2022 Fluzone (or Fluarix & Flulaval for VFC) >6mos Fluzone High-Dose 65+yrs 12/30/2021,12/20/2020 Pneumococcal Polysaccharide (PPSV23) 01/21/2020 Family History Medical History Relation Name Comments Breast cancer Sister Colon cancer Neg Hx Ovarian cancer Neg Hx Uterine cancer Neg Hx Relation Name Status Comments Sister Social History Tobacco Use Types Packs/Day Years Used Date Smoking Tobacco: Never Tobacco Cessation:Counseling Given: Not Answered Alcohol Use Standard Drinks/Week Comments Not Currently 0 (1 standard drink = 0.6 oz pur e alcohol) Comments No Sex and Gender Information Value Date Recorded Sex Assigned at Not on file Legal Sex Female 8:54 AM EDT Gender Identity Not on file Sexual Orientation Not on file Last Filed Vital Signs Vital Sign Reading Time Taken Comments Blood Pressure 118/72 09/30/2024 10:02 AM EDT Pulse 87 12/01/2018 9:00 AM EDT Temperature 36.3 C (97.4 F) 12/01/2018 9:00 AM EDT Respiratory Rate 14 12/01/2018 9:00 AM EDT Oxygen Saturation 97% 12/01/2018 9:00 AM EDT Inhaled Oxygen Concentration - - Weight 65.3 kg (144 lb) 09/30/2024 10:02 AM EDT Height 170.2 cm (5' 7 ) 09/30/2024 10:02 AM EDT Body Mass Index 22.55 09/30/2024 10:02 AM EDT Plan of Treatment Health Maintenance Due Date Last Done Comments DXA SCAN 1950 TDAP/TD VACCINES (1 - Tdap) 1968 COLON CANCER SCREENING 5 KANE R SIGMOIDOSCOPY [address] COLONOGRAPHY 1994 FECAL OCCULT BLOOD TEST 1994 FIT Testing (1 year) 1994 ZOSTER VACCINE (1 of 2) 09/06/1999 HEPATITIS C SCREENING 12/01/2018 Pneumococcal Vaccine 50+ (2 of 2 - PCV) 01/20/2021 01/21/2020 ANNUAL WELLNESS VISIT 04/06/2023 04/06/2022 INFLUENZA VACCINE 10/23/2024 02/18/2024, , 12/30/2021, Additional history exists COVID-19 Vaccine ( - 2023-2 5 season) 2024 02/18/2024, 12/21/2021, 06/27/2021, Additional history exists COLOGUARD 02/10/2026 02/10/2023 COLORECTAL CANCER SCREENING 02/10/2026 RSV Vaccine - Adults Completed 02/13/2023 Insurance PPO Member Subscriber Plan / Payer (Ef fective 2024-Present) Name:Leta Ryees Relation to Subscriber:Self Name:Leta Reyes Payer ID:[id number] (NAIC) Type:Not on file Address: [address] MEDICARE ADVANTAGE PPO Care Teams Electricians Top Helper Relationship Specialty Start Date End Date Provider, No Known [facility] [place] [address] PCP - General 12/01/18
--- OUTSIDE RECORDS SUMMARY | 2025-01-07 14:15 | XMS_ITS | Data Portability ---
Author Organization [facility] Address [address] [place] [address] Assessment No assessment recorded. Plan of Treatment Reminders Order Date Submit Date Provider Last Modified By Organization Details Last Modified Time Details Appointments None recorded. Lab lipid panel, serum [address] (Laboratory), [address] [place], [address], 3 09:50:59 TSH + free T4, serum [address] (Laboratory), [address] [place], [address], 3 09:50:59 HbA1c (hemoglobin A1c), blood [address] (Laboratory), [address] [place], [address], 3 09:51:00 rf (rheumatoid factor) + anti-ccp abs, serum [address] (Laboratory), [address] [place], [address], 3 09:51:00 ESR (erythrocyt e sedimentati on rate), blood [address] (Laboratory), [address] [place], [address], 3 09:51:00 uric acid, serum or plasma [address] (Laboratory), [address] [place], [address], 3 09:51:00 C reactive protein, QN, serum or plasma [address] (Laboratory), [address] [place], [address], 3 09:51:00 CBC w/ diff [address] (Laboratory), [address] [place], [address], 3 09:50:59 CMP, serum or plasma [address] (Laboratory), [address] [place], [address], 3 09:50:59 ROSA MARIA (antinuclea r antibodies) screen, serum [address] (Laboratory), [address] [place], [address], 3 09:51:01 Referral None recorded. Procedures None recorded. Surgeries None recorded. Imaging MAMMO, screening, bilateral [address] Centralized Scheduling, [address] [place], [address], 3 15:30:48 Medication Orders None recorded. Patient TargetsNo targets recorded. Patient InstructionsNo instructions recorded. Reason for Referral None Reported. Procedures Surgical History Date Name Laterality Status Provider Name and Address Organization Details Recorded Time 3 Medicare Annual Wellness Visit Health Risk Assessment completed Germania Johns APRN [address] [facility], [place], [address], [facility] & [place] 04/16/2022 15:19:15 Imaging Results None recorded. Procedure Notes None recorded. Medical Equipment None Reported. Medications Name Sig Start Date Stop Date Status Note LastModified by Organization Details LastModified Time ondansetron HCl 4 mg tablet TAKE 1 TABLET BY MOUTH EVERY 8 HOURS NEEDED FOR NAUSEA OR VOMITING active Not Available Not Available No t Available metronidazole 500 mg tablet TAKE 1 TABLET BY MOUTH EVERY 8 HOURS FOR 10 DAYS active Not Available Not Available No t Available ciprofloxacin 500 mg tablet TAKE 1 TABLET BY MOUTH EVERY 12 HOURS FOR 10 DAYS active Not Available Not Available No t Available dicyclomine 10 mg capsule TAKE 1 CAPSULE BY MOUTH EVERY 6 HOURS NEEDED active Not Available Not Available No t Available naproxen 500 mg tablet TAKE 1 TABLET BY MOUTH TWICE DAILY WITH LARGE GLASS OF WATER active Not Available Not Available No t Available Vitals Date Recorded Body height Body mass index (BMI) Body weight Body temperature Systolic And Diastolic Provider Name and Address Organization Details Last Updated DateTime 04/06/2022 166.37 cm 25.8 kg/m2 58178.7 2 g 98.1 [degF] 157/87 mm[Hg] Marlene Condon LPNT - [place] & [place] 3 09:28:05 Social History None recorded. Functional Status None recorded. Mental Status None recorded. Family History Nothing Reported. Medical History No medical history recorded. Gynecological HistoryNo gynecological history recorded. Obstetrics History GPAL:G 0 P 0 0 0 0 Past Encounters Encounter ID Performer Location Encounter Start Date Encounter Closed Date Diagnosis/Indication Diagnosis SNOMED-CT Code Diagnosis ICD10 Code Diagnosis IMO Codes Diagnosis Note [id number] Germania Johns APRN [id number] [address] [address] 04/06/2022 08:36:47 04/06/2022 11:13:32 Adult health examination 133642289 Z00.00 Patient presented to office today for their Medicare Annual Wellness Visit.Educ ation was provided on healthy nutrition, including a diet rich in fruits and vegetables , minimizing simple carbohydra frida, salt, and saturated fats. Encouraged regular cardiovasc ular exercise such as walking at least 30 minutes daily, 5 times per week.Empha sized preventive health measures and educated pt on fall prevention and community- based lifestyle interventi ons to help reduce health risks and promote healthy living. blood drawn in the right AC by marlene Granados CMA, patient tolerated well. Pain of mu ltiple joints 21972006 M25.50 Arthralgia After reviewing the patient's history, physical examinatio n and appropriat e ancillary studies the diagnosis of arthralgia (pain) was made. With the preliminar y informatio n available with today's visit, no definitive cause for the pain could be made. Through a combinatio n of further diagnostic studies, diagnostic &/or therapeuti c injections , consultati ons a more precise diagnosis will be sought. Treatment modalities will be appropriat judson tailored to the results and/or responses to the above studies or injections . Hyperlipid emia screening 041982227 Z13.220 Screening mammography 24 586705 Z12.31 Endocrine/ metabolic screening 178867196 Z13.228 Elevated blood-pressure reading without diagnosis of hypertension 238449614 R03.0 monitor BP dailymonit or salt intakeincr ease water intake Health Concerns Section Related Observation LastModified by Organization Detai ls LastModified Time None Recorded Concern Status LastModified by Organization Details LastModified Time None Recorded Advance Directives Directive None Recorded Payers Insurance Date Sequence Insurance Name Policy Number Policy Jacobsen Covered Member ID Jacobsen Member ID Guarantor Name 04/17/2022 1 [place]MEDICARE REPLACEMENT HMO) [id number] Leta Dempsey Reyes [id number] Leta Eric 04/25/2021 1 [place] Leta Dempsey Eric [id number] Leta Reyes 04/06/2022 [place] - [place] - PART A - [facility] (MEDICARE) Leta S Eric [id number] Leta Reyes 04/17/2022 1 [place] [id number] Leta Dempsey Reyes [id number] Leta Reyes Notes Date Note Type Note Provider Name and Address Organization Details Recorded Time 04/06/2022 text/html Annual WellnessReported by PatientSocial/Behavior al HistoryFor diet and nutrition, patient reportshealthy diet. For fracture risk, patient reportsno history of fractures,no recent explained fracture,no sudden unexplained fractures, andno previous musculoskeletal injuries. For physical activity, patient reportsexercises on a regular basis,recent increase in physical activity, andgood physical condition. For additional lifestyle factors, patient reportsno tobacco use,no alcohol intake, andstopped drinking alcohol.Mental Status:For depression risk, patient reportsnever feels sad, empty, or tearful,no loss of interest in activities,no significant changes in weight,no sleep disturbances or insomnia,no agitation,no loss of energy,no feelings of worthlessness or guilt,no thoughts of suicide,no history of depression, andno history of mood disorders.Functional AbilityFor hearing, patient reportsno loss of hearing. For vision, patient reportsno vision problems.due for mammogramcervical cancer screening not [id number] for blood workUTD on vaccines, covid and fluSeen by Dr Yeager for repair of torn meniscus Right kneewould like to have a colonoscopy but has no one to take to appt and take back home Germania Johns, HUMA [address] [facility], [place], [address], [facility] & [place] 04/16/2022 15:20:16 OBGyn Episode No OBEpisode recorded.
== END 2025-01-06 23:59 | disposition home or self-care (01) ==
LOC: LAB.DROPOF 01-07 14:06
PROVIDERS: PCP Family Medicine; Visit Provider Family Medicine
DX: N39.0 Urinary tract infection, site not specified (principal)
CPT/HCPCS: 87086; 87088; 87186